=== PATIENT | female | born 1935 | race Caucasian/White ===

== ENCOUNTER 2018-04-15 10:31 | Observation (INO) | payer OTHER ==
[~2018-04-15] VITALS: Ht 152.4 cm; Wt 64.4 kg
[2018-04-15 11:06] LABS: HEMATOCRIT 39.5 % (36.0-46.0); HEMOGLOBIN 13.8 G/DL (11.9-15.5); MCH 33.2 PG (29.0-34.0); MCHC 34.9 G/DL (30.0-36.0); PLATELET COUNT 265 K/uL (156-360); RBC DIS.WIDTH-CV 14.1 % (11.8-14.6); RBC DIS.WIDTH-SD 49.3 % (39-53); RED BLOOD COUNT 4.16 M/uL (3.80-5.20); WHITE BLOOD COUNT 12.6 K/uL (4.1-10.2)
[2018-04-15 11:37] LABS: TROP-I INTERPRETATION NEGATIVE; TROPONIN-I < 0.01 ng/mL (0.0-0.30)
[2018-04-15 11:40] LABS: CHLORIDE 107 MEQ/L (99-109); GFR ESTIMATE (CALCULATED) 56 mL/min/; GLUCOSE 114 mg/dL (70-99); POTASSIUM 4.4 MEQ/L (3.7-5.4); SODIUM 136 MEQ/L (136-147); UREA NITROGEN (BUN) 33 mg/dL (9-23)
[2018-04-15] MEDS ORDERED: NORVASC2.5 MG PO (13:02)
[2018-04-15] MEDS ORDERED: PROPAFENONE HC225 MG PO (13:03)
[2018-04-15] MEDS ORDERED: PROTONIX40 MG PO (13:03)
[2018-04-15] MEDS ORDERED: FLONASE16 G1 BOTH NARES (13:04)
[2018-04-15] MEDS ORDERED: TOPROL XL50 MG PO (13:04)
[2018-04-15] MEDS ORDERED: SYNTHROID137 MCG PO (13:05)
[2018-04-15] MEDS ORDERED: LOW DOSE ASPIRI81 M1 PO (13:05)
[2018-04-15] MEDS ORDERED: CALTRATE PLUS1 EACH PO (13:05)
[2018-04-15 15:46] VITALS: BP 158/80
[2018-04-15 17:09] LABS: TROP-I INTERPRETATION NEGATIVE; TROPONIN-I 0.01 ng/mL (0.0-0.30)
[2018-04-15 19:07] LABS: APPEARANCE CLEAR ((CLEAR)); BILIRUBIN NEGATIVE; BLOOD SMALL; COLOR STRAW ((YELLOW)); GLUCOSE (STRIP) NEGATIVE; KETONES NEGATIVE; LEUKOCYTES NEGATIVE; NITRITE NEGATIVE; PROTEIN (STRIP) NEGATIVE; SPECIFIC GRAVITY 1.012 (1.000-1.030); UROBILINOGEN 0.2 MG/DL (0.2-1.0)
[2018-04-15 19:25] LABS: BACTERIA RARE /HPF; EPITHELIAL CELLS NONE SEEN /HPF; MUCUS TRACE /LPF; RED BLOOD CELLS 0-5 /HPF (0-5); UCUL ADDED? NO; WHITE BLOOD CELLS 0-5 /HPF (0-5)
[2018-04-15 19:53] VITALS: BP 143/69
[2018-04-15 23:06] LABS: TROP-I INTERPRETATION NEGATIVE; TROPONIN-I < 0.01 ng/mL (0.0-0.30)
[2018-04-16 00:18] VITALS: BP 138/65
[2018-04-16 04:14] VITALS: BP 136/62
[2018-04-16 05:45] LABS: HEMATOCRIT 36.9 % (36.0-46.0); HEMOGLOBIN 12.6 G/DL (11.9-15.5); MCH 32.8 PG (29.0-34.0); MCHC 34.1 G/DL (30.0-36.0); MCV 96.1 FL (83-99); PLATELET COUNT 237 K/uL (156-360); RBC DIS.WIDTH-CV 14.2 % (11.8-14.6); RBC DIS.WIDTH-SD 49.9 % (39-53); RED BLOOD COUNT 3.84 M/uL (3.80-5.20); WHITE BLOOD COUNT 7.7 K/uL (4.1-10.2)
[2018-04-16 06:04] LABS: CHLORIDE 109 MEQ/L (99-109); CREATININE 0.8 MG/DL (0.6-1.3); GFR ESTIMATE (CALCULATED) > 59 mL/min/; GLUCOSE 86 mg/dL (70-99); POTASSIUM 3.6 MEQ/L (3.7-5.4); SODIUM 142 MEQ/L (136-147); UREA NITROGEN (BUN) 19 mg/dL (9-23)
[2018-04-16 08:50] VITALS: BP 155/75
[2018-04-16] MEDS ORDERED: TOPROL XL25 MG PO (10:04)
== END 2018-04-16 11:18 | disposition home or self-care (01) ==
LOC: EME 10:31 → EDOF 12:22 → 4SOUTH 12:22 → ENRESERV 12:23 → 4SOUTH 15:33
PROVIDERS: Hospitalist; Physician Assistant
DX: R00.1 Bradycardia, unspecified (principal); R55 Syncope and collapse; I48.0 Paroxysmal atrial fibrillation; I10 Essential (primary) hypertension; E03.9 Hypothyroidism, unspecified; H54.8 Legal blindness, as defined in USA; I44.7 Left bundle-branch block, unspecified; Z79.82 Long term (current) use of aspirin; Z79.01 Long term (current) use of anticoagulants; Z82.49 Family history of ischemic heart disease and other diseases of the circulatory system; Z83.49 Family history of other endocrine, nutritional and metabolic diseases; Z88.0 Allergy status to penicillin
CPT/HCPCS: 70551; 71045; 80048; 81003; 84484; 85027; 85379; 93005; 99281; 99285; G0378; J1650; J7030